=== PATIENT | female | born 1965 | race Caucasian/White ===

== ENCOUNTER 2017-06-19 09:59 | Emergency (ER) | payer MEDICAID ==
[~2017-06-19] VITALS: Ht 167.6 cm; Wt 90.7 kg
[2017-06-19 10:00] VITALS: BP 157/84
[2017-06-19] MEDS ORDERED: KETOROLAC TROMETHAMINE INJ 60 MG/2 ML VIAL IM ONE (11:30)
[2017-06-19] MEDS ORDERED: KETOROLAC TROMETHAMINE INJ 30 MG/ML VIAL ONE (11:49)
--- NOTE | 2017-06-19 11:58 | NUR ---
TO ER WAITING ROOM FOR FURTHER OBS.,S/P MEDICATION
== END 2017-06-19 12:00 | disposition home or self-care (01) ==
LOC: ER 10:02
DX: M54.42 Lumbago with sciatica, left side (principal)
CPT/HCPCS: A4606; J1885; Z7610